=== PATIENT | female | born 1965 | race Caucasian/White ===

== ENCOUNTER 2023-07-16 08:31 | Outpatient (CLI) | payer BC | END 2023-07-16 08:32 | disposition home or self-care (01) | LOC: CSHMRI 08:31 | PROVIDERS: ATTEND Specialist | DX: M54.50 Low back pain, unspecified (principal); M47.816 Spondylosis without myelopathy or radiculopathy, lumbar region | CPT/HCPCS: 72148 ==

== ENCOUNTER 2023-09-08 13:07 | Outpatient (CLI) | payer BC | END 2023-09-08 13:08 | disposition home or self-care (01) | LOC: CSHCT 13:07 | PROVIDERS: ATTEND Surgery | DX: M47.26 Other spondylosis with radiculopathy, lumbar region (principal); M48.061 Spinal stenosis, lumbar region without neurogenic claudication | CPT/HCPCS: 72131 ==